=== PATIENT | male | born 1975 | race Caucasian/White ===

== ENCOUNTER 2017-11-06 20:16 | Emergency (ER) | payer SELFPAY ==
[2017-11-06 20:20] VITALS: BP 143/83; PULSE 104; RESP 20; TEMP 99.1; O2SAT 97
[2017-11-06] MEDS ORDERED: ROBA750T PO (20:42)
[2017-11-06] MEDS ORDERED: IBUP1TAB7 PO (20:42)
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
== END 2017-11-06 20:52 | disposition home or self-care (01) ==
LOC: PHEFT 20:16
DX: S49.91XA Unspecified injury of right shoulder and upper arm, initial encounter (principal); F17.200 Nicotine dependence, unspecified, uncomplicated; X58.XXXA Exposure to other specified factors, initial encounter
CPT/HCPCS: 99283